=== PATIENT | male | born 1995 | race Caucasian/White ===

== ENCOUNTER 2023-09-22 15:17 | Outpatient (OUT) | payer OTHER, SELFPAY ==
--- NOTE | 2023-09-22 15:23 | MR_ITS ---
[address] [address] Patient Name: GOLDY PATIÑO MRN: [id number] date: 1995 Sex: M Assigned Patient Location: MRI Current Patient Location: Accession/Order Number: [id number] Exam Date: 09/22/2023 16:15 Report Date: 09/23/2023 06:57 At the request of: CIERA HOGAN Procedure: MR knee LT wo con EXAMINATION: MR knee LT wo con HISTORY: Left Knee Sprain S83.92XA COMPARISON: No relevant comparison available. TECHNIQUE: A complete multi-planar MRI was performed. FINDINGS: MEDIAL COMPARTMENT MEDIAL MENISCUS: Oblique tear extending into the inferior surface of the posterior horn. CARTILAGE: No visible defect. BONES: No marrow pathology, fracture, or significant arthropathy. MCL AND MEDIAL CAPSULE: Normal medial collateral ligament and medial capsule. LATERAL COMPARTMENT LATERAL MENISCUS: No visible tear or significant degeneration. CARTILAGE: No visible defect. BONES: No marrow pathology, fracture, or significant arthropathy. LCL/POSTEROLAT COMPLEX: Normal lateral collateral ligament, fascicles, lateral capsule and ligaments. ANTERIOR COMPARTMENT PATELLA: 9 mm area of subchondral edema involving lateral facet, mid body. CARTILAGE: No visible defect. TENDONS: Normal. EFFUSION: None. No synovitis or loose bodies. ACL: Normal appearing ligament. PCL: Normal appearing ligament. MENISCOFEMORAL: Normal meniscofemoral ligaments. OTHER: Negative. MR/MR knee LT wo con IMPRESSION: 1. Suspect small undersurface tear of posterior horn of medial meniscus. 2. Subchondral edema/bruising of lateral facet of patella. No appreciable overlying cartilage defect. Electronically authenticated by: TRE LOPEZ Date: 09/23/2023 06:57
== END 2023-09-22 15:18 | disposition home or self-care (01) ==
LOC: MRI 15:18
PROVIDERS: Visit Provider Nurse Practitioner Family
DX: S83.92XA Sprain of unspecified site of left knee, initial encounter (principal); S83.222A Peripheral tear of medial meniscus, current injury, left knee, initial encounter
CPT/HCPCS: 73721